=== PATIENT | male | born 1985 | race African-American/Black ===

== ENCOUNTER 2023-07-31 16:01 | Emergency (ER) | payer OTHER ==
[~2023-07-31] VITALS: Ht 180.3 cm; Wt 102.0 kg
[~2023-07-31 16:01] MED LIST: MICROZIDE PO; NAPROXEN500 MG PO; NON-ASPIRIN325 MG PO; PROTONIX40 M2 PO; ZESTRIL10 M1 PO
[2023-07-31 16:17] VITALS: BP 132/78
[2023-07-31 16:31] VITALS: BP 110/70
[2023-07-31 17:01] VITALS: BP 110/70
[2023-07-31 17:31] VITALS: BP 117/58
[2023-07-31 17:39] VITALS: BP 117/58
== END 2023-07-31 17:45 | disposition home or self-care (01) | DRG 556 ==
LOC: ED 16:01
PROC: 2W3RX1Z Immobilization of Left Lower Leg using Splint (ICD-10-PCS; principal; 2023-07-31)
DX: M25.572 Pain in left ankle and joints of left foot (principal)